=== PATIENT | male | born 1970 | race Caucasian/White ===

== ENCOUNTER 2020-07-23 14:24 | Inpatient (IN) | payer OTHER ==
[~2020-07-23] VITALS: Ht 172.7 cm; Wt 70.0 kg
[~2020-07-23 14:24] MED LIST: ATARAX,VISTARIL50 MG PO; CARBIDOPA/LEVOD1 TA1 PO; ONDANSETRON HYDR4 M1 PO; ZOFRAN 4 MG ED2 TAB PO
--- NOTE | 2020-07-23 15:49 | NUR ---
PATIENT MEETS [facility]. CINA=15. PATIENT WANTS TO FOLLOW UP WITH [facility] FOR HIS AFTERCARE PLAN. ARIAS BLAND B.A. TIMBER BUCKER
[2020-07-23 15:50] VITALS: BP 139/76
--- NOTE | 2020-07-23 15:50 | NUR ---
Time: 1549 A 50 year old MALE admitted to under services of MARGRET AMBROSE DO. Pt. arrived via ambulatory from ER. Chief complaint: OPIATE WITHDRAWAL. PEDRO PAGAN
[2020-07-23] MEDS ORDERED: VALIUM5 MG PO (16:37)
[2020-07-23 16:44] LABS: BASO % 0.3 % (0.0-1.0); EOS # 0.1 10*3/uL (0.0-0.4); EOS % 1.2 % (1.0-4.0); HEMATOCRIT 38.5 % (42.0-52.0); LYMPH # 1.2 10*3/uL (1.3-4.4); LYMPH % 14.2 % (27.0-41.0); MEAN CELL VOLUME 87.9 fl (80.0-94.0); MEAN PLATELET VOLUME 10.9 fl (9.6-12.3); MONO # 0.5 10*3/uL (0.1-1.0); MONO % 5.8 % (3.0-9.0); NEUT # 6.8 10*3/uL (2.3-7.9); NEUT % 78.3 % (47.0-73.0); PLATELET COUNT AUTOMATED 229 10*3/uL (130-400); RED BLOOD COUNT 4.38 10*6/uL (4.50-5.90); WHITE BLOOD COUNT 8.6 10*3/uL (4.8-10.8)
[2020-07-23 16:55] LABS: INTERNATIONAL NORM RATIO 1.1 (2.0-3.5)
[2020-07-23 17:00] LABS: ALBUMIN 3.5 gm/dl (3.1-4.5); ALKALINE PHOSPHATASE 89 U/L (45-117); BUN 7 mg/dl (7-24); CHLORIDE 106 mmol/L (98-107); CREATININE 0.72 mg/dL (0.70-1.30); POTASSIUM 3.8 mmol/L (3.5-5.1); SGOT/AST 24 IU/L (3-35); SGPT/ALT 25 U/L (12-78); SODIUM 141 mmol/L (136-145); TOTAL PROTEIN 7.9 gm/dL (6.4-8.2)
[2020-07-23 17:05] LABS: ETHYL ALCOHOL < 3.0 mg/dl (<3)
--- NOTE | 2020-07-23 17:05 | NUR ---
PATIENTS BELONGINGS TAKEN DOWN TO SECURITY AND LOCKED UP.
[2020-07-23 18:41] LABS: BILIRUBIN Negative (Negative); BLOOD Negative (Negative); CLARITY Clear (Clear); COLOR Yellow (Yellow); GLUCOSE Negative (Negative); KETONE Trace (Negative); LEUKO ESTERASE Negative (Negative); NITRITE Negative (Negative); SPECIFIC GRAVITY 1.015 (1.001-1.030)
[2020-07-23 18:48] LABS: URINE AMPHETAMINES < 1000 (1000ng/ml); URINE BARBITURATES < 200 (200ng/ml); URINE BENZODIAZEPINES > 200 (200ng/ml); URINE CANNABINOIDS (THC) < 50 (50ng/ml); URINE COCAINE > 300 (300ng/ml); URINE METHADONE < 300 (300ng/ml); URINE OPIATES > 300 (300ng/ml)
[2020-07-23 18:49] LABS: URINE PHENCYCLIDINE < 25 (25ng/ml)
[2020-07-23 18:59] LABS: WBC 0-2 wbc/hpf (0-5)
[2020-07-23 20:00] VITALS: BP 114/59
--- NOTE | 2020-07-23 21:26 | NUR ---
24 HR chart check completed.
--- NOTE | 2020-07-23 22:51 | NUR ---
Patient displaying withdrawal symptoms, including: irritability, anxiousness, restlessness and agitation. Scheduled/PRN medications provided, SEE EMAR. Will continue to monitor medication effectiveness.
--- NOTE | 2020-07-23 23:30 | NUR ---
Patient resting. Responding to scheduled medications with fewer complaints of pain and anxiety.
[2020-07-24] VITALS: BP 113/60
--- NOTE | 2020-07-24 00:30 | NUR ---
SLEEPING. NO DISTRESS NOTED. RESPIRATIONS EASY. VSS. CALL LIGHT WITHIN REACH
[2020-07-24 04:00] VITALS: BP 110/52
--- NOTE | 2020-07-24 06:58 | NUR ---
Patient SLEEPING. Responding to scheduled medications with fewer complaints of pain and anxiety.
[2020-07-24 08:00] VITALS: BP 118/66
--- NOTE | 2020-07-24 10:00 | NUR ---
PT REFUSED SUBUTEX STATING IT DOES NOT WORK FOR HIM. TAVON SIMEON NP MADE AWARE.
[2020-07-24 12:00] VITALS: BP 129/70
--- NOTE | 2020-07-24 14:00 | NUR ---
PT MEDICATED WITH VISTARIL AND ROBAXIN FOR C/O ANXIETY AND BODY ACHES.
--- NOTE | 2020-07-24 15:19 | NUR ---
[facility] STAFF IN TO SEE PATIENT. PATIENT IS STILL WANTING TO FOLLOW UP WITH [facility] FOR HIS AFTERCARE PLAN. ARIAS BLAND B.A. CORRECTIONAL OFFICER LIEUTENANT
[2020-07-24 16:00] VITALS: BP 93/64
--- NOTE | 2020-07-24 16:30 | NUR ---
PT RESTING IN BED/ EYES CLOSED. NO DISTRESS NOTED. WILL MONITOR
[2020-07-24 20:00] VITALS: BP 107/55
--- NOTE | 2020-07-24 21:00 | NUR ---
Patient resting. Responding to scheduled medications with fewer complaints of pain and anxiety.
--- NOTE | 2020-07-24 23:09 | NUR ---
24 HR chart check completed.
[2020-07-25] VITALS: BP 135/72
--- NOTE | 2020-07-25 | NUR ---
SLEEPING. NO DISTRESS NOTED. RESPIRATIONS EASY. VSS. CALL LIGHT WITHIN REACH
--- NOTE | 2020-07-25 06:00 | NUR ---
Patient resting. Responding to scheduled medications with fewer complaints of pain and anxiety.
[2020-07-25 08:00] VITALS: BP 132/67
--- NOTE | 2020-07-25 10:50 | NUR ---
Discharge instructions reviewed with patient/family. Patient receptive and verbalizes understanding. Follow-up care arranged. Written instructions given to patient/family. LUIS QUINN
--- NOTE | 2020-07-25 11:22 | NUR ---
DROWSY, UNABLE TO KEEP EYES OPEN. DENIES NEED FOR ANY FURTHER MED'S AT THIS TIME.
--- NOTE | 2020-07-25 11:42 | NUR ---
[facility] STAFF IN TO SEE PATIENT. PATIENT'S AFTERCARE PLAN REMAINS THE SAME. ARIAS BLAND B.A. INTAKE COORDIANTOR
[2020-07-25 12:00] VITALS: BP 118/62
[2020-07-25 16:00] VITALS: BP 118/66
--- NOTE | 2020-07-25 19:00 | NUR ---
REPORT RECEIVED FROM LUIS MCGRAW. PT WATCHING TV. PT VOICES NO COMPLAINTS, CALL LIGHT IN REACH
[2020-07-25 20:00] VITALS: BP 123/64
--- NOTE | 2020-07-25 21:13 | NUR ---
PRN MEDICATIONS GIVEN, REQUIP, ROBAXIN AND VISTARIL FOR COMPLAINTS OF RESTLESSNESS, LEG CRAMPS AND ANXIETY. WILL MONITOR
--- NOTE | 2020-07-25 22:10 | NUR ---
PER PT, PRN MEDS EFFECTIVE.
[2020-07-26] VITALS: BP 137/78
--- NOTE | 2020-07-26 01:00 | NUR ---
PT WATCHING TV AT THIS TIME. NO COMPLAINTS
--- NOTE | 2020-07-26 03:00 | NUR ---
PT SLEEPING AT THIS TIME
--- NOTE | 2020-07-26 05:30 | NUR ---
IN TO SEE PT. VOICES NO COMPLAINTS. CALL LIGHT IN REACH
[2020-07-26 08:00] VITALS: BP 155/81
[2020-07-26] MEDS ORDERED: ATARAX,VISTARIL50 MG PO (09:46)
[2020-07-26] MEDS ORDERED: ZOFRAN 4 MG ED2 TAB PO (09:46)
[2020-07-26] MEDS ORDERED: METHOCARBAMOL750 M1 PO (09:46)
--- NOTE | 2020-07-26 12:17 | NUR ---
Discharge instructions reviewed with patient/family. Patient receptive and verbalizes understanding. Follow-up care arranged. Written instructions given to patient/family. MANISH ROASRIO
== END 2020-07-26 12:17 | disposition home or self-care (01) | DRG 773 ==
LOC: 5E 14:24
PROVIDERS: Registered Nurse; ADMIT Student in an Organized Health Care Education/Training Program; ATTEND Student in an Organized Health Care Education/Training Program
DX: F11.10 Opioid abuse, uncomplicated (principal); F13.10 Sedative, hypnotic or anxiolytic abuse, uncomplicated; F17.210 Nicotine dependence, cigarettes, uncomplicated; F41.1 Generalized anxiety disorder; F14.10 Cocaine abuse, uncomplicated; E78.5 Hyperlipidemia, unspecified; Z82.49 Family history of ischemic heart disease and other diseases of the circulatory system; Z71.6 Tobacco abuse counseling